=== PATIENT | male | born 1950 | race Caucasian/White ===

== ENCOUNTER 2018-03-17 07:26 | Inpatient (IN) | payer MEDICARE ==
[2018-03-17 08:18] LABS: #Eosinphils 0.1 thou/uL (0.0-0.7); #Lymphocytes 1.5 thou/uL (1.20-3.40); #Monocytes 0.4 thou/uL (0.11-0.59); #Neutrophils 2.3 thou/uL (1.40-6.50); %Basophils 0.6 % (0.0-1.0); %Lymphocytes 33.5 % (21.0-51.0); %Monocytes 10.2 % (0.0-10.0); %Neutrophils 53.7 % (42.0-75.0); Hemoglobin 15.5 g/dL (14.0-18.0); Mean Corpuscular HGB CONC 33.8 g/dL (32.0-36.0); Mean Corpuscular Hemoglobin 30.9 pg (27.0-31.0); Mean Corpuscular Volume 91.4 fL (78.0-98.0); Mean Platelet Volume 8.5 fL (7.4-10.4); Platelet Count 194 thou/uL (130-400); RBC Distribution Width 11.1 % (11.5-14.5); White Blood Cell (WBC) Count 4.3 thou/uL (4.8-10.8)
[2018-03-17] MEDS ORDERED: CEFAZOLIN/Water 2 GM/20 ML SYRINGE ONE (08:21)
[2018-03-17] MEDS ORDERED: Midazolam HCl 2 mg/2 ml Vial ONE (08:21)
[2018-03-17 08:32] LABS: Anion Gap 12 mmol/L (10-20); BUN (Urea Nitrogen) 18 mg/dL (8.4-25.7); Calc. Creatinine Clearance 96 mL/min (70-130); Calcium 9.7 mg/dL (7.8-10.44); Carbon Dioxide 26 mmol/L (23-31); Chloride 105 mmol/L (98-107); Estimated GFR-MDRD 70; Glucose 120 mg/dL (80-115); Potassium 4.1 mmol/L (3.5-5.1); Sodium 139 mmol/L (136-145)
[2018-03-17] MEDS ORDERED: Heparin 10,000 UNITS/1 ML VIAL 30,000 UNITS in Sodium Chloride 0.9% 1,000 ML IVPB SCH (08:45)
[2018-03-17] MEDS ORDERED: Albumin 5% 500 ML ONE (09:02)
[2018-03-17] MEDS ORDERED: Dexmedetomidine 200 MCG/2 ML VIAL ONE (09:11)
[2018-03-17] MEDS ORDERED: Fentanyl 100 MCG/2 ML VIAL ONE (09:11)
[2018-03-17] MEDS ORDERED: Vecuronium 10 MG VIAL ONE ×2 (09:11→09:53)
[2018-03-17] MEDS ORDERED: Midazolam HCl 5 mg/5 ml Vial ONE (09:11)
[2018-03-17] MEDS ORDERED: Papaverine 60 MG/2 ML VIAL ONE (09:51)
[2018-03-17] MEDS ORDERED: Protamine Sulfate 250 MG/25 ML VIAL ONE (09:51)
[2018-03-17] MEDS ORDERED: Potassium Chloride 60 MEQ/30 ML VIAL ONE (09:51)
[2018-03-17] MEDS ORDERED: Mannitol 12.5 GM/50 ML ONE (09:51)
[2018-03-17] MEDS ORDERED: Calcium Chloride 1 GM/10 ML Abboject SYRINGE ONE (09:51)
[2018-03-17] MEDS ORDERED: Magnesium 5 GM/10 ML VIAL ONE (09:51)
[2018-03-17] MEDS ORDERED: Nitroglycerin 50 MG/250 ML BOT ONE (09:51)
[2018-03-17] MEDS ORDERED: Sodium Bicarb 50 MEQ/50 ML Abboject 8.4% SYRINGE ONE (09:51)
[2018-03-17] MEDS ORDERED: Lidocaine 2% PF 100 mg/5 ml Syringe ONE (09:51)
[2018-03-17] MEDS ORDERED: Heparin 30,000 units/30 ml VIAL ONE (09:51)
[2018-03-17] MEDS ORDERED: Heparin 5,000 UNITS/ML VIAL ONE (09:51)
[2018-03-17] MEDS ORDERED: Thrombin 5000 UNITS/5 ML VIAL ONE (09:51)
[2018-03-17] MEDS ORDERED: Aminocaproic Acid 5 GM/20 ML VIAL ONE (09:51)
[2018-03-17] MEDS ORDERED: Ketorolac Tromethamine 30 MG/ML VIAL ONE (09:53)
[2018-03-17] MEDS ORDERED: Lidocaine 1% PF 5 ML VIAL ONE (09:53)
[2018-03-17] MEDS ORDERED: ePHEDrine/0.9% NaCl/PF SYRINGE 50 mg/10 ml ONE (09:53)
[2018-03-17] MEDS ORDERED: PHENYLEPHRINE-NS 100 MCG/ML 10 ML SYRINGE ONE (09:53)
[2018-03-17] MEDS ORDERED: Prevnar 13-Val Conj/PF 0.5 ML SYRINGE IM ONE (12:30)
[2018-03-17] MEDS ORDERED: Bisacodyl 5 MG TAB PO PRN (12:54)
[2018-03-17] MEDS ORDERED: Guaifenesin DM 100-10/5 ML UDCUP PO PRN (12:54)
[2018-03-17] MEDS ORDERED: Mag-Al 1200 mg/1200 mg/30 ML UDCUP PO PRN (12:54)
[2018-03-17] MEDS ORDERED: Ondansetron PF 4 MG/2 ML Vial IVP PRN (12:54)
[2018-03-17] MEDS ORDERED: Hetastarch 6% 500 ML 500 ML IVPB PRN (12:54)
[2018-03-17] MEDS ORDERED: Bisacodyl 10 MG SUPP PR PRN (12:54)
[2018-03-17] MEDS ORDERED: Post-Op Insulin Drip Protocol IVPB ONE (12:54)
[2018-03-17] MEDS ORDERED: hydrALAZINE 20 MG/ML VIAL SLOW IVP PRN (12:54)
[2018-03-17] MEDS ORDERED: HYDROcodone/Acetaminophen 5/325 mg Tablet PO PRN (12:54)
[2018-03-17] MEDS ORDERED: DOPamine 400 MG/D5W 250 ML 250 ML IVPB PRN (12:54)
[2018-03-17] MEDS ORDERED: Acetaminophen 325 MG TAB PO PRN (12:54)
[2018-03-17] MEDS ORDERED: Fentanyl 100 MCG/2 ML VIAL SLOW IVP PRN (12:54)
[2018-03-17] MEDS ORDERED: Potassium Chloride 20 MEQ/100 ML PREMIX BAG IVPB PRN (12:54)
[2018-03-17] MEDS ORDERED: Promethazine HCl 25 MG/ML VIAL IM PRN (12:54)
[2018-03-17] MEDS ORDERED: Nitroglycerin 50 MG/250 ML BOT 250 ML IVPB PRN (12:54)
[2018-03-17] MEDS ORDERED: Phenylephrine 10 MG/NS 250 ML 250 ML IVPB PRN (12:54)
[2018-03-17] MEDS ORDERED: Magnesium Sulfate 5 GM in Sodium Chloride 0.9% 1,000 ML IV SCH (13:00)
[2018-03-17] MEDS ORDERED: Dextrose 5% in Water 1,000 ML IV PRN (13:14)
[2018-03-17] MEDS ORDERED: Insulin Regular 300 UNITS/3 ML VIAL SC PRN (13:14)
[2018-03-17] MEDS ORDERED: Dextrose 50% Abboject 50 ML SYRINGE SLOW IVP PRN (13:14)
[2018-03-17 13:27] LABS: #Eosinphils 0.1 thou/uL (0.0-0.7); #Lymphocytes 1.1 thou/uL (1.20-3.40); #Monocytes 0.4 thou/uL (0.11-0.59); #Neutrophils 5.6 thou/uL (1.40-6.50); %Basophils 0.3 % (0.0-1.0); %Lymphocytes 14.9 % (21.0-51.0); %Monocytes 5.1 % (0.0-10.0); %Neutrophils 78.7 % (42.0-75.0); Hemoglobin 13.9 g/dL (14.0-18.0); Mean Corpuscular HGB CONC 33.7 g/dL (32.0-36.0); Mean Corpuscular Volume 91.9 fL (78.0-98.0); Mean Platelet Volume 8.5 fL (7.4-10.4); Platelet Count 138 thou/uL (130-400); Red Blood Cell (RBC) Count 4.48 mill/uL (4.70-6.10); White Blood Cell (WBC) Count 7.1 thou/uL (4.8-10.8)
--- NOTE | 2018-03-17 13:30 | OP ---
DATE OF PROCEDURE: 03/17/2018 PREOPERATIVE DIAGNOSES: Coronary artery disease, atrial fibrillation, paroxysmal. POSTOPERATIVE DIAGNOSES: Coronary artery disease, atrial fibrillation, paroxysmal. PROCEDURE: Coronary bypass graft x2, left internal mammary artery good quality to a 2-2.5 mm LAD, sa phenous vein good quality to a 1.5-2 mm OM1. Left atrial appendage ligation and epicardial maze proc edure. SURGEON: Serafin Reyez M.D. HOME STAGING SPECIALIST: Dr. Anthony Grubbs TRANSFUSION: None. PROCEDURE IN DETAIL: After adequate anesthesia had been obtained, Dr. Grubbs placed a right subclavia n triple lumen CVP. The patient was then prepped and draped and Dr. Grubbs harvested saphenous vein f rom the left thigh. Following this, I performed a median sternotomy. Left internal mammary artery w as harvested after dividing the sternum. Heparin was given. The mammary divided distally, passed po sterior to a bulky thymus gland. It was then treated with intraluminal papaverine with excellent haily w. Aorta and right atrium were cannulated and after cardiopulmonary bypass was begun vessels were in spected for grafting. The OM1 was intramyocardial; however, proximally it was easily visible. Follo wing aortic cross clamping and a liter of cold blood cardioplegia was given. Epicardial maze with th e Medtronic irrigative device was used to treat the right superior and inferior pulmonary veins separ ately on 2 occasions each and then combined left superior and inferior pulmonary vein x2. Base of th e appendage was then treated and oversewn with a double layer of 4-0 Prolene suture. Following compl etion of this, the two distal anastomoses were completed with a 7-0 Prolene suture. The cross-clamp removed, partial occluding clamp placed, and a single proximal anastomosis performed on the aortic ro ot marked with a ring. The patient was then weaned from cardiopulmonary bypass, cannulas removed, an d the aortic cannulation site secured with a 4-0 Prolene suture. Mediastinal and left pleural drains were placed and after obtaining good hemostasis, the sternum was reapproximated with #7 interrupted wire using vancomycin paste on the sternal edges, platelet rich blood, and platelet-poor plasma.
[2018-03-17 13:34] LABS: INR-International Normal Ratio 1.3; Prothrombin Time 16.4 SEC (12.0-14.7)
[2018-03-17] MEDS: Lactated Ringer's 1,000 ML IV SCH ×2 (13:47→22:39)
[2018-03-17 13:48] VITALS: BMI 38.2
[2018-03-17 13:58] LABS: Anion Gap 7 mmol/L (10-20); BUN (Urea Nitrogen) 15 mg/dL (8.4-25.7); Calc. Creatinine Clearance 121 mL/min (70-130); Calcium 8.1 mg/dL (7.8-10.44); Carbon Dioxide 24 mmol/L (23-31); Chloride 112 mmol/L (98-107); Estimated GFR-MDRD 90; Glucose 143 mg/dL (80-115); Potassium 4.3 mmol/L (3.5-5.1); Sodium 139 mmol/L (136-145)
--- NOTE | 2018-03-17 14:13 | RAD ---
CHEST 1 VIEW PORTABLE: Date: 03/17/18 HISTORY: 67-year-old male with history of postop open heart. No comparison studies are available. FINDINGS: There are findings of recent postop open heart surgery with midline sternotomy. Right subclavian cath eter. No pneumothorax or significant confluent pneumonia. There are some increased markings in the in frahilar regions, probably subsegmental atelectasis. IMPRESSION: Evidence for some infrahilar increased densities, evidence for some subsegmental atelectatic changes postoperative. No evidence for other acute process. Continue short-term follow-up. POS: [facility]
[2018-03-17] MEDS: Fentanyl 100 MCG/2 ML VIAL SLOW IVP PRN ×2 (14:43→16:20)
[2018-03-17] MEDS: CEFAZOLIN/Water 2 GM/20 ML SYRINGE SLOW IVP SCH ×2 (15:33→23:37)
[2018-03-17] MEDS: Ketorolac Tromethamine 30 MG/ML VIAL IVP SCH ×2 (17:32→23:37)
[2018-03-17 19:07] LABS: Hemoglobin 13.3 g/dL (14.0-18.0)
[2018-03-17 19:27] LABS: Potassium 4.1 mmol/L (3.5-5.1)
[2018-03-17] MEDS ORDERED: Famotidine/PF 20 mg/2ml Vial SLOW IVP SCH (21:00)
[2018-03-17] MEDS ORDERED: Atorvastatin Calcium 10 MG TAB PO SCH (21:00)
[2018-03-17] MEDS: HYDROcodone/Acetaminophen 5/325 mg Tablet PO PRN (21:08)
--- NOTE | 2018-03-17 21:41 | CON ---
DATE OF CONSULTATION: 03/17/2018 SERVICE: Pulmonary Medicine. REASON FOR CONSULTATION: ICU patient. HISTORY OF PRESENT ILLNESS: The patient is a pleasant 67-year-old white male with past medical history significant for hypertension, dyslipidemia and coronary artery disease. He also has paroxysmal atrial fibrillation. He presented to the hospital today for routine outpatient coronary artery bypass graft and Maze procedure. The operation was uncomplicated. He returned to the ICU already extubated. He denies any chest pain, shortness of breath, nausea, vomiting, fevers or chills at this time. He went into this procedure in his usual state of health. PAST MEDICAL HISTORY: 1. Coronary artery disease. 2. Atrial fibrillation, paroxysmal. 3. Dyslipidemia. 4. Hypertension. PAST SURGICAL HISTORY: 1. Coronary artery bypass graft x2 vessels with intraoperative ligation of left atrial appendage. 2. Cholecystectomy. 3. Cardiac catheterization. SOCIAL HISTORY: He has rare alcohol use. He is a lifelong nonsmoker and denies any illicit drugs. He has no exposure to chemicals, dust, asbestos or tuberculosis. FAMILY HISTORY: Noncontributory. ALLERGIES: No known drug allergies. MEDICATIONS: List of his inpatient medications were reviewed. No specific updates were made. REVIEW OF SYSTEMS: General, head, ears, eyes, nose, throat, cardiovascular, respiratory, GI, , musculoskeletal, neurologic and skin is negative except as mentioned in the HPI. PHYSICAL EXAMINATION: VITAL SIGNS: Afebrile, pulse 51, blood pressure 123/74, respirations 25, saturation 97% on 4 liters via simple facemask. HEENT: Normocephalic, atraumatic. Sclerae are white. Conjunctivae are pink. Oral mucosa is moist without lesions. LUNGS: Good air entry. Some rhonchi are present dependently. It clears with cough. Dependent crackles are minimal. No prolonged expiratory phase or wheezing appreciated. HEART: Normal rate and regular. ABDOMEN: Soft, nontender, nondistended. Bowel sounds are positive. MUSCULOSKELETAL: No cyanosis or clubbing. There is 1+ pitting in the bilateral lower extremities. NEUROLOGIC: Grossly nonfocal. LABORATORY DATA: WBC 7.1, hemoglobin 13.9, platelets 138,000. INR 1.3. Basic metabolic profile is essentially unremarkable. IMAGING: Chest x-ray demonstrates no fractures or dislocations. There is no acute cardiopulmonary abnormality identified. Interval placement of sternotomy wires are noted. There is a left-sided thoracostomy drain and mediastinal drain in good position. Low lung volumes are present. There is likely volume loss in the left. ASSESSMENT: 1. Acute hypoxic respiratory failure. 2. Coronary artery disease, status post coronary artery bypass graft x2 vessels , postop day 0. 3. Atrial fibrillation, paroxysmal, status post left atrial appendage ligation. PLAN: We will continue postop supportive care. Pulmonary Critical Care will continue to follow along while the patient remains in this location. We will focus on the mobilization efforts starting in the morning. 70 minutes have been devoted to this patient in various activities. I personally reviewed all imaging studies and laboratory data noted within this document. For fifty percent of this time, I was interacting with the patient at the bedside or coordinating care with the care team. For the remainder of the time I was immediately available to the patient in the hospital unit. [facility]
[2018-03-18 03:36] LABS: #Lymphocytes 0.9 thou/uL (1.20-3.40); #Monocytes 0.6 thou/uL (0.11-0.59); #Neutrophils 5.2 thou/uL (1.40-6.50); %Basophils 0.2 % (0.0-1.0); %Eosinophils 0.2 % (0.0-10.0); %Lymphocytes 12.7 % (21.0-51.0); Mean Corpuscular Hemoglobin 31.5 pg (27.0-31.0); Mean Corpuscular Volume 92.7 fL (78.0-98.0); Mean Platelet Volume 8.9 fL (7.4-10.4); Platelet Count 147 thou/uL (130-400); White Blood Cell (WBC) Count 6.7 thou/uL (4.8-10.8)
[2018-03-18 03:55] LABS: Anion Gap 9 mmol/L (10-20); BUN (Urea Nitrogen) 18 mg/dL (8.4-25.7); Calc. Creatinine Clearance 118 mL/min (70-130); Carbon Dioxide 23 mmol/L (23-31); Chloride 110 mmol/L (98-107); Estimated GFR-MDRD 88; Glucose 124 mg/dL (80-115); Potassium 4.1 mmol/L (3.5-5.1); Sodium 138 mmol/L (136-145)
[2018-03-18] MEDS: HYDROcodone/Acetaminophen 5/325 mg Tablet PO PRN ×4 (04:11→21:00)
[2018-03-18] MEDS: Ketorolac Tromethamine 30 MG/ML VIAL IVP SCH ×4 (05:06→23:51)
[2018-03-18] MEDS ORDERED: Milk Of Magnesia 30 ML UDCUP PO PRN (08:38)
[2018-03-18] MEDS ORDERED: Nitroglycerin 0.4 MG TAB (25 Tab Bottle) SL PRN (08:38)
[2018-03-18] MEDS ORDERED: Acetaminophen 325 MG TAB PO PRN (08:38)
[2018-03-18] MEDS ORDERED: Guaifenesin DM 100-10/5 ML UDCUP PO PRN (08:38)
[2018-03-18] MEDS ORDERED: Mineral Oil ENEMA PR PRN (08:38)
[2018-03-18] MEDS ORDERED: Bisacodyl 10 MG SUPP PR PRN (08:38)
[2018-03-18] MEDS ORDERED: Fentanyl 100 MCG/2 ML VIAL SLOW IVP PRN (08:38)
[2018-03-18] MEDS ORDERED: Ondansetron PF 4 MG/2 ML Vial IVP PRN (08:38)
[2018-03-18] MEDS ORDERED: Mag-Al 1200 mg/1200 mg/30 ML UDCUP PO PRN (08:38)
[2018-03-18] MEDS ORDERED: Bisacodyl 5 MG TAB PO PRN (08:38)
--- NOTE | 2018-03-18 08:43 | RAD ---
PORTABLE AP CHEST XRAY: DATE: 03/18/2018. HISTORY: Post open heart surgery. COMPARISON: 03/17/2018. FINDINGS: Right subclavian central venous catheter is noted in place with the tip in stable position. Left-mark ed thoracostomy tube and mediastinal drains are stable in position. Cardiac silhouette is magnified by projection and stable in size. There is bibasilar atelectasis. Pulmonary vasculature is within n ormal limits. There is accentuation of the bronchovascular markings due to a shallow depth of inspir ation. The chest is overall stable from the prior study. IMPRESSION: Overall stable chest given differences in depth of inspiration. Lines and tubes are unchanged in pos ition. POS: [facility]
[2018-03-18] MEDS: Sodium Chloride 0.9% 10 ML ONE ×2 (08:48→23:53)
[2018-03-18] MEDS ORDERED: Aspirin 325 MG TAB PO SCH (09:00)
[2018-03-18] MEDS: Polyethylene Glycol 3350 17 GM Packet PO SCH ×2 (09:03→14:34)
[2018-03-18] MEDS: Aspirin 325 mg Enteric Coated Tablet PO SCH (09:09)
[2018-03-18] MEDS: Famotidine 20 MG TAB PO SCH ×2 (09:09→21:01)
[2018-03-18] MEDS ORDERED: CEFAZOLIN/Water 2 GM/20 ML SYRINGE SLOW IVP SCH (15:00)
--- NOTE | 2018-03-18 15:04 | PRG ---
DATE OF SERVICE: 03/18/2018 SERVICE: Pulmonary Medicine. INTERVAL HISTORY: The patient is doing outstanding from a respiratory standpoint. He denies any cur rent chest pain, fevers, or chills. Outside of when he coughs, he takes a deep breath. He is breath ing comfortably. There has been no interval change to his condition otherwise, he feels like he is m oving in the right direction. Chest tubes remain in place. He is yet to get up and walk around much . That being said, he has been out of bed and feels good. OBJECTIVE: VITAL SIGNS: Afebrile, pulse 64, blood pressure 122/68, respirations 17, saturation 93% on 2 liters nasal cannula. GENERAL: The patient is awake, alert, no apparent distress. LUNGS: Decent air entry. Dependent crackles are mild. No prolonged expiratory phase or wheezing ap preciated. HEART: Normal rate, regular. ABDOMEN: Soft, nontender, nondistended. Bowel sounds are positive. MUSCULOSKELETAL: No cyanosis or clubbing. There is trace 1+ pitting in the bilateral lower extremit ies. NEUROLOGIC: Grossly nonfocal. LABORATORY DATA: WBC 6.7, hemoglobin 12.0, platelets 147,000. Chloride 110. Basic metabolic profil e is otherwise unremarkable. IMAGING: Chest x-ray today demonstrates stable chest. Lines and tubes are otherwise in similar posi tion. There is no significant pulmonary vascular congestion identified on this radiograph. ASSESSMENT: 1. Acute hypoxic respiratory failure, improving. 2. Coronary artery disease, status post coronary bypass graft x2 vessels, postop day #1. 3. Atrial fibrillation, paroxysmal, status post left atrial appendage ligation. DISCUSSION AND PLAN: At this point, the patient is doing fantastic in the postoperative period. He has no further requirements for inpatient Pulmonary or Critical Care opinion. As such, I will sign o ff. Please call with additional questions or concerns moving forward.
[2018-03-18] MEDS: CEFAZOLIN/Water 2 GM/20 ML SYRINGE SLOW IVP SCH (15:10)
[2018-03-18] MEDS ORDERED: Sodium Chloride 0.9% 10 ML ONE (18:21)
[2018-03-18] MEDS: Atorvastatin Calcium 20 MG TAB PO SCH (21:01)
[2018-03-19] MEDS: Ketorolac Tromethamine 30 MG/ML VIAL IVP SCH ×3 (05:39→18:04)
[2018-03-19] MEDS: Sodium Chloride 0.9% 10 ML ONE (05:51)
[2018-03-19] MEDS: Aspirin 325 mg Enteric Coated Tablet PO SCH (07:42)
[2018-03-19] MEDS: Potassium Chloride 10 MEQ TAB PO SCH (07:42)
[2018-03-19] MEDS: HYDROcodone/Acetaminophen 5/325 mg Tablet PO PRN ×3 (07:43→22:02)
[2018-03-19] MEDS: Famotidine 20 MG TAB PO SCH ×2 (07:43→22:01)
--- NOTE | 2018-03-19 08:35 | EKG ---
Test Reason : S/P CABG Blood Pressure : / mmHG Vent. Rate : 050 BPM Atrial Rate : 050 BPM P-R Int : 174 ms QRS Dur : 104 ms QT Int : 478 ms P-R-T Axes : 049 018 028 degrees QTc Int : 435 ms Sinus bradycardia with Premature supraventricular complexes with aberrancy vs premature ventricular c ontraction. Otherwise normal ECG No previous ECGs available Confirmed by LEANA CLIFFORD ([id number]) on 03/19/2018 8:34:36 AM Referred By: FABIAN Confirmed By:LEANA CLIFFORD
[2018-03-19] MEDS ORDERED: Furosemide 40 MG TAB PO SCH (09:00)
[2018-03-19] MEDS ORDERED: Amiodarone HCl 150 MG in Dextrose 5% in Water 100 ML IVPB SCH (11:15)
[2018-03-19] MEDS ORDERED: Amiodarone In Dextrose 200 ML IVPB SCH (11:15)
[2018-03-19] MEDS ORDERED: Sodium Chloride 0.9% 10 ML ONE ×2 (12:32→18:02)
[2018-03-19] MEDS: Polyethylene Glycol 3350 17 GM Packet PO SCH (12:48)
[2018-03-19 12:55] LABS: ALT (SGPT) 27 U/L (8-55); AST (SGOT) 36 U/L (5-34); Albumin 3.7 g/dL (3.4-4.8); Alkaline Phosphatase 64 U/L (40-150); Bilirubin, Direct 0.4 mg/dL (0.1-0.3); Bilirubin, Total 0.9 mg/dL (0.2-1.2); Magnesium 2.5 mg/dL (1.6-2.6); Protein, Total 6.3 g/dL (5.8-8.1)
[2018-03-19] MEDS: Amiodarone HCl 450 MG, Admixture Fee 1 EACH in Dextrose 5% in Water 250 ML IVPB SCH ×2 (13:10→22:24)
[2018-03-19] MEDS: Atorvastatin Calcium 20 MG TAB PO SCH (22:01)
[2018-03-20] MEDS: Ketorolac Tromethamine 30 MG/ML VIAL IVP SCH ×4 (00:35→18:25)
[2018-03-20 05:21] LABS: #Eosinphils 0.1 thou/uL (0.0-0.7); #Lymphocytes 1.2 thou/uL (1.20-3.40); #Monocytes 0.7 thou/uL (0.11-0.59); #Neutrophils 4.6 thou/uL (1.40-6.50); %Basophils 0.3 % (0.0-1.0); %Eosinophils 1.6 % (0.0-10.0); %Lymphocytes 18.4 % (21.0-51.0); %Neutrophils 69.6 % (42.0-75.0); Hemoglobin 13.3 g/dL (14.0-18.0); Mean Corpuscular Hemoglobin 31.3 pg (27.0-31.0); Mean Corpuscular Volume 92.1 fL (78.0-98.0); Mean Platelet Volume 9.2 fL (7.4-10.4); Platelet Count 140 thou/uL (130-400); RBC Distribution Width 10.9 % (11.5-14.5); Red Blood Cell (RBC) Count 4.23 mill/uL (4.70-6.10); White Blood Cell (WBC) Count 6.7 thou/uL (4.8-10.8)
[2018-03-20 05:34] LABS: Anion Gap 9 mmol/L (10-20); BUN (Urea Nitrogen) 14 mg/dL (8.4-25.7); Calc. Creatinine Clearance 122 mL/min (70-130); Calcium 8.7 mg/dL (7.8-10.44); Carbon Dioxide 25 mmol/L (23-31); Chloride 100 mmol/L (98-107); Estimated GFR-MDRD 88; Glucose 129 mg/dL (80-115); Potassium 3.8 mmol/L (3.5-5.1); Sodium 130 mmol/L (136-145)
[2018-03-20] MEDS: Famotidine 20 MG TAB PO SCH ×2 (09:16→21:12)
[2018-03-20] MEDS: Furosemide 40 MG TAB PO SCH ×2 (09:16→14:15)
[2018-03-20] MEDS: Amiodarone 200 MG TAB PO SCH ×2 (09:16→21:12)
[2018-03-20] MEDS: Aspirin 81 mg Enteric Coated Tablet PO SCH (09:17)
[2018-03-20] MEDS: Potassium Chloride 10 MEQ TAB PO SCH (09:17)
[2018-03-20] MEDS: Polyethylene Glycol 3350 17 GM Packet PO SCH (09:18)
[2018-03-20] MEDS: Enoxaparin Sodium 100 MG/ML SYRINGE SC SCH ×2 (09:18→21:13)
--- NOTE | 2018-03-20 10:54 | RAD ---
CHEST 1 VIEW: HISTORY: Status post open heart surgery. COMPARISON: 03/18/2018. FINDINGS: Redemonstration of mediastinal drainage catheter, a left-sided chest tube, and a right-sided central venous catheter. Lung volume continues to be diminished. Bibasilar pleural and parenchymal changes are noted. No pneumothorax. Stable cardiac silhouette. IMPRESSION: Findings compatible with recent open heart surgery. POS: [facility]
[2018-03-20] MEDS: HYDROcodone/Acetaminophen 5/325 mg Tablet PO PRN ×2 (16:07→21:20)
[2018-03-20] MEDS: Atorvastatin Calcium 20 MG TAB PO SCH (21:11)
[2018-03-21 05:43] LABS: Hemoglobin 11.6 g/dL (14.0-18.0); Platelet Count 152 thou/uL (130-400)
[2018-03-21] MEDS: Potassium Chloride 10 MEQ TAB PO SCH (09:19)
[2018-03-21] MEDS: Amiodarone 200 MG TAB PO SCH (09:19)
[2018-03-21] MEDS: Aspirin 81 mg Enteric Coated Tablet PO SCH (09:20)
[2018-03-21] MEDS: Furosemide 40 MG TAB PO SCH ×2 (09:20→14:33)
[2018-03-21] MEDS: Famotidine 20 MG TAB PO SCH ×2 (09:20→20:24)
[2018-03-21] MEDS: HYDROcodone/Acetaminophen 5/325 mg Tablet PO PRN (09:21)
[2018-03-21] MEDS: Polyethylene Glycol 3350 17 GM Packet PO SCH ×2 (09:22→12:24)
--- NOTE | 2018-03-21 10:19 | PRG ---
DATE OF SERVICE: 03/21/2018 Mr. Garza is feeling well today, no chest pain or no shortness of breath. As noted in the chart he has developed atrial flutter with a relatively controlled ventricular response. The initial rhythm strips were on 03/17/2018 which showed sinus bradycardia. PHYSICAL EXAMINATION: LUNGS: His lungs are clear. CARDIAC: Irregular, no murmur, rub or gallop. ABDOMEN: Soft, nontender. EXTREMITIES: No edema. ASSESSMENT: Previously with paroxysmal atrial fibrillation, now atrial flutter some of this could be left-sided s/p CABG PLAN: 1. Change to Toprol-XL 50 mg a day. 2. Stop amiodarone. 3. Probably go home tomorrow. 4. Could consider atrial fibrillation and flutter ablation at a later time. We will resume anticoagulation when feasible. I would like to bring him back at a later time for transesophageal echo to make sure the appendage is completely closed. 5. Ultimately consideration for ablation of both the fibrillation and flutter as an outpatient will be given. HARMONY
[2018-03-21] MEDS: Atorvastatin Calcium 20 MG TAB PO SCH (20:24)
[2018-03-22] MEDS: HYDROcodone/Acetaminophen 5/325 mg Tablet PO PRN ×2 (05:11→10:59)
[2018-03-22 07:41] VITALS: BP 146/76; TEMP 97.9
[2018-03-22] MEDS: Aspirin 81 mg Enteric Coated Tablet PO SCH (08:11)
[2018-03-22] MEDS: Potassium Chloride 10 MEQ TAB PO SCH (08:11)
[2018-03-22] MEDS: Famotidine 20 MG TAB PO SCH (08:11)
[2018-03-22] MEDS: Polyethylene Glycol 3350 17 GM Packet PO SCH (08:12)
--- NOTE | 2018-03-22 10:07 | PRG ---
DATE OF SERVICE: 03/22/2018 SUBJECTIVE: Mr. Garza is doing well. No complaints. He is back in sinus rhythm. OBJECTIVE: VITAL SIGNS: Blood pressure 146/76, pulse 63 and regular. LUNGS: Clear. CARDIAC: Normal S1, normal S2. ABDOMEN: Soft, nontender. EXTREMITIES: No edema. ASSESSMENT: 1. Status post bypass surgery. 2. Paroxysmal atrial fibrillation. 3. Postoperative atrial flutter, currently has resolved. 4. Hypertension. PLAN: 1. He is to go back on the apixaban 5 mg twice a day. 2. Aspirin 81 mg a day. 3. Toprol-XL 50 mg a day. 4. He is off Benicar today. 5. Go ahead resume Benicar 40 mg tomorrow. 6. Currently off amlodipine.
--- NOTE | 2018-03-22 12:14 | DIS ---
This is a 67-year-old gentleman who underwent coronary bypass grafting to the LAD and OM with left at rial appendage ligation, confirmed with intraoperative CYNTHIA as well as a pulmonary vein isolation with the ImpactRxtronic wet device. Postoperative course was relatively unremarkable. He did have a short ep isode of atrial fibrillation and then a longer episode of atrial flutter with a controlled rate. He will be discharged home on metoprolol XL 50 a day, Lipitor 20 a day, Eliquis 5 b.i.d., aspirin 81 a d ay and Bonsall for pain. Incisions are healing nicely at the time of discharge. Plan is to reevaluate him in the future for consideration of atrial fibrillation/flutter ablation if it recurs. Discharge and follow up instructions have been given.
--- NOTE | 2018-03-24 09:37 | PQF ---
CARMEN JON JAMES M MD [id number] CLINICAL DOCUMENTATION CLARIFICATION FORM: POST DISCHARGE DATE: 03/24/2018 ATTN: DR. PERALTA Please exercise your independent, professional judgment in responding to the clarification form. Clinical indicators are provided on the bottom of this form for your review Please check appropriate box(s): [ ] Acute respiratory failure following a procedure [ ] Acute on chronic respiratory failure following a procedure [ ] Respiratory failure not related to surgical procedure [ ] Acute [ ] Chronic [ ] Acute on chronic [ ] Acute respiratory insufficiency due to a procedure [ ] Acute respiratory insufficiency NOT due to a procedure - please specify cause: [ ] Length of Ventilator management as a part of normal recovery, usual and customary for procedure [ ] Other diagnosis [ ] Unable to determine In addition, please specify: Present on Admission (POA): [ ] Yes [ ] No [ ] Unable to determine For continuity of documentation, please document condition throughout progress notes and discharge summary. Thank You. CLINICAL INDICATORS - SIGNS / SYMPTOMS / LABS "Acute hypoxic respiratory failure, improving" - PN 03/18/2018 decent air entry, dependent crackles are mild - PN 03/18/2018 atrial fibrillation, atrial flutter - s/p CABG and atrial appendage ligation - PN 03/18/2018 03/18/18 - 92%, 94%, 93% O2 sats 03/19/2018 - 94%, 93% O2sats - Respiratory clinical panel RISKS FACTORS CABG, atrial appendage ligation, epicardial maze procedure - OP 03/17/2018 TREATMENT: Oxygen - nasal cannula - Respiratory Clinical panel (This form is maintained as a part of the permanent medical record) 2014 [employer]. All Rights Reserved Anushka Chavarria, CCS, FAST FOOD DELIVERY DRIVER, CASC [email or web address]
== END 2018-03-22 11:32 | disposition home or self-care (01) | DRG 235 ==
LOC: SURG A 07:26 → CCU 12:56 → 2NO 03-18 08:24
PROVIDERS: ADMIT Thoracic Surgery (Cardiothoracic Vascular Surgery); ATTEND Thoracic Surgery (Cardiothoracic Vascular Surgery)
PROC: 02100Z9 Bypass Coronary Artery, One Artery from Left Internal Mammary, Open Approach (ICD-10-PCS; principal; 2018-03-17)
PROC: 0210093 Bypass Coronary Artery, One Artery from Coronary Artery with Autologous Venous Tissue, Open Approach (ICD-10-PCS; 2018-03-17)
PROC: 06BQ4ZZ Excision of Left Saphenous Vein, Percutaneous Endoscopic Approach (ICD-10-PCS; 2018-03-17)
PROC: 02L70ZK Occlusion of Left Atrial Appendage, Open Approach (ICD-10-PCS; 2018-03-17)
DX: I25.10 Atherosclerotic heart disease of native coronary artery without angina pectoris (principal); J96.01 Acute respiratory failure with hypoxia; I97.190 Other postprocedural cardiac functional disturbances following cardiac surgery; I48.92 Unspecified atrial flutter; I48.0 Paroxysmal atrial fibrillation; Y83.2 Surgical operation with anastomosis, bypass or graft as the cause of abnormal reaction of the patient, or of later complication, without mention of misadventure at the time of the procedure; I10 Essential (primary) hypertension; E78.5 Hyperlipidemia, unspecified; Z90.49 Acquired absence of other specified parts of digestive tract; E78.2 Mixed hyperlipidemia; Z79.899 Other long term (current) drug therapy
CPT/HCPCS: 36415; 36416; 36430; 71045; 80048; 80076; 82565; 83735; 84443; 85014; 85018; 85025; 85049; 85610; 85730; 86850; 86900; 86901; 90471; 90670; 93005; 93010; 93798; G0009; J0282; J1642; J1644; J1650; J1815; J1885; J2001; J2150; J2250; J2440; J2720; J3010; J3370; J3475; J3480; J7050; J7070; P9045; S0017; S0028

== ENCOUNTER 2018-06-20 06:26 | Outpatient (CLI) | payer MEDICARE ==
[2018-06-20 09:42] LABS: Hemoglobin 14.2 g/dL (14.0-18.0); Mean Corpuscular HGB CONC 33.8 g/dL (32.0-36.0); Mean Corpuscular Hemoglobin 28.2 pg (27.0-31.0); Mean Corpuscular Volume 83.4 fL (78.0-98.0); Mean Platelet Volume 9.1 fL (7.4-10.4); Platelet Count 189 thou/uL (130-400); RBC Distribution Width 12.5 % (11.5-14.5); Red Blood Cell (RBC) Count 5.02 mill/uL (4.70-6.10); White Blood Cell (WBC) Count 5.4 thou/uL (4.8-10.8)
[2018-06-20 09:46] LABS: INR-International Normal Ratio 1.2; PTT 31.8 SEC (22.9-36.1)
[2018-06-20 10:04] LABS: Anion Gap 13 mmol/L (10-20); BUN (Urea Nitrogen) 15 mg/dL (8.4-25.7); Calc. Creatinine Clearance 0 mL/min (70-130); Calcium 9.7 mg/dL (7.8-10.44); Carbon Dioxide 25 mmol/L (23-31); Chloride 106 mmol/L (98-107); Estimated GFR-MDRD 88; Glucose 113 mg/dL (80-115); Potassium 4.5 mmol/L (3.5-5.1); Sodium 139 mmol/L (136-145)
== END 2018-06-20 06:27 | disposition home or self-care (01) ==
LOC: LABBT 06:26
PROVIDERS: ATTEND Internal Medicine Cardiovascular Disease
DX: Z01.818 Encounter for other preprocedural examination (principal); I48.91 Unspecified atrial fibrillation
CPT/HCPCS: 80048; 85027; 85610; 85730; 93005; 93010

== ENCOUNTER 2018-06-23 05:42 | Observation (INO) | payer MEDICARE ==
[2018-06-23] MEDS ORDERED: Propofol 1,000 MG/100 ML VIAL IV ONE (06:31)
[2018-06-23] MEDS ORDERED: Fentanyl 100 MCG/2 ML VIAL ONE ×5 (06:31→13:51)
[2018-06-23] MEDS ORDERED: Heparin 10,000 UNITS/1 ML VIAL ONE ×2 (06:48→09:15)
[2018-06-23] MEDS ORDERED: Midazolam HCl 2 mg/2 ml Vial ONE (07:05)
[2018-06-23] MEDS ORDERED: Propofol 500 MG/50 ML VIAL ONE (07:05)
[2018-06-23] MEDS ORDERED: KETAMINE 100 MG/ML (5ML VIAL) ONE (07:05)
[2018-06-23] MEDS ORDERED: PROPOFOL 20 ML ONE (07:51)
--- NOTE | 2018-06-23 09:31 | ECHO ---
TRANSESOPHAGEAL ECHOCARDIOGRAM: Date: 06/13/18 REASON FOR PROCEDURE: Mr. Garza is a 67-year-old male with bypass surgery last year. He had a Maze procedure and left appendage closure. Since then, he has been in atrial flutter. He is here for a CYNTHIA to evaluate his left appendage closure and patency. PROCEDURE: Patient received Propofol by anesthesia specialist. After adequate level of sedation was achieved, the standard transesophageal echocardiogram probe was passed into the esophagus without difficulty. The patient tolerated the procedure well. No complications were noted. RESULTS: Left atrium is mildly enlarged, about 4.4 cm in horizontal diameter. Left appendage is visualized. There is a small residual pouch seen, about 1.0 cm in diameter, at the site of the appendage. Behind that, a surgical closure septum is visualized. No flow on Doppler is visualized through the septum. Behind the wall, there is a space which is echo-free with fluid, likely represents some residual portion of the left atrial appendage, but cannot rule out pericardial sinus. Either way, there is no flow going through this area. Small clotted material is demonstrated in the distal portion of this. Mitral valve has mild regurgitation only. Four of four pulmonary veins were visualized. --------- septum is free of defect. Left ventricular systolic function is preserved. Chamber sizes are normal otherwise. Left ventricular wall thickness is normal. Right-sided chamber is nondilated. Tricuspid valve without significant regurgitation. Aortic valve is sclerotic, but opens well, three leaflets demonstrated, and no significant regurgitation is seen. Pulmonic valve is borderline visualized, but appears to be with mild regurgitation. Pericardial space is with mild effusion only. The visualized portions of the ascending and descending aorta with adherent atheroma, but adherent atheroma is seen. Intraventricular septum is free of defect. CONCLUSIONS: 1. The closure of the left atrial appendage is demonstrated with minor residual pouch. 2. Mild left atrial enlargement. 3. Mild mitral regurgitation. 4. Preserved left ventricular systolic function. 5. Trivial pericardial effusion. 6. Sclerotic but not stenotic aortic valve. PLAN: Proceed with the ablation procedure. HARMONY
[2018-06-23] MEDS ORDERED: Isoproterenol 0.2 MG/1 ML AMP ONE (10:16)
[2018-06-23] MEDS ORDERED: DOPamine 400 MG/D5W 250 ML 0 ML ONE (10:16)
[2018-06-23] MEDS ORDERED: Heparin 25,000 units/D5W 500 ML ONE (10:16)
[2018-06-23] MEDS ORDERED: Iopamidol 370 76% 50 ML VIAL FS ONE (10:17)
[2018-06-23] MEDS ORDERED: Protamine Sulfate 50 MG/5 ML VIAL ONE (11:32)
--- NOTE | 2018-06-23 14:26 | OP ---
DATE OF PROCEDURE: 06/23/2018 ELECTROPHYSIOLOGY STUDY AND RADIOFREQUENCY FREQUENCY ABLATION REPORT REFERRING PHYSICIAN: Dr. Vini Lazo. REASON FOR PROCEDURE: Mr. Garza is a 67-year-old man with prior history of coronary artery disease post bypass surgery, who had persistent atrial flutter post bypass surgery and atrial fibrillation prior to the bypass. He underwent left atrial maze procedure during the bypass surgery as well as left atrial appendage ligation. CYNTHIA performed prior to this ablation demonstrated occlusion of the left atrial appendage with minimal residual stump. He is here for atrial flutter ablation as well as re-isolation of left pulmonary vein. DESCRIPTION OF PROCEDURE: The patient received propofol by Anesthesia specialist. After adequate level of sedation achieved, the left and right femoral veins were prepped, draped, and anesthetized using subcutaneous lidocaine. With help of ultrasound, both femoral veins were cannulated x2 each site. On the left side, an 11-Wolof sheath was used to advance an intracardiac ICE catheter, which was used to monitor hemodynamics transseptal procedure as well as any effusion throughout the case. At the end of case, no significant pericardial effusion was seen unchanged from before. Also from the left side, a Preface sheath was introduced through which a DuoDeca catheter was advanced to the CS in right atrial position. Due to instability, this later was changed to a simple Decapolar catheter. On the right side, two 8-Wolof short sheaths were introduced through which a ThermoCool SFST catheter was advanced to the right atrium. Right atrial 3D map was obtained. The overdrive pacing at the cavotricuspid isthmus demonstrated post pacing interval matching the atrial flutter cycle length at baseline is about 240 milliseconds. Following that, cavotricuspid isthmus ablation was performed, which terminated the atrial flutter. Proximal CS pacing was performed, and the transisthmus block was demonstrated by longest transisthmus time by adjacent to the ablation line. Following that, transseptal procedure was performed x2 with ultrasound guidance. Heparin was administered to keep ACTs over 360, which were monitored. Throughout the procedure, the esophageal probe was used to monitor the posterior wall had esophageal temperatures. Through the SL1 sheath, a 20-pole Lasso catheter was introduced to the left atrium and a 3D map of the left atrium was also obtained. The right-sided pulmonary veins were found to be isolated. Posterior wall was remained intact without significant scarring. The left-sided veins were not isolated. Pulmonary venous isolation of left pulmonary veins was performed successfully isolating the both veins. Following that, Isuprel was administered. Any reconnections were re-ablated. All 4 pulmonary veins were silent at the end of the procedure. Following that, the catheter was withdrawn from the right atrium, but also through the sheath, a left atrial venogram was performed, but no evidence of reconnection of the left atrial appendage was seen. Following that, the heparin was stopped and on the right side, the cavotricuspid isthmus line was rechecked and re-ablated for any reconnection. After this, again the cardiac silhouette did not significantly change and no significant pericardial effusion was noted at the end of the case. The sheaths were pulled in the laborer powerhouse. No complications. NUMERICAL FINDINGS: Baseline cycle length was 1020. MA 178, QRS 84, QT 340, AH 140, HV 45 milliseconds after termination of the baseline atrial flutter. Baseline atrial flutter episode typical isthmus dependent flutter with atrial cycle length of 240 milliseconds. After termination of flutter, AV Wenckebach cycle length was 360 milliseconds. AV lev ERP was 600/300 milliseconds. No dual AV lev physiology was present. Burst atrial pacing did not reinduce the atrial tachyarrhythmia. CONCLUSION: 1. Successful cavotricuspid isthmus ablation eliminating baseline atrial flutter. 2. Re-isolation of the left superior and inferior pulmonary veins was necessary. The right-sided veins were found to be isolated from a prior surgical maze procedure. 3. No evidence of IV dye progressing into the left atrial appendage apart from a small stump proximally. 4. Normal sinus and AV lev function. No evidence of additional atrial arrhythmias inducible. PLAN: Restart short-term anticoagulation for about 3 months. If no recurrent atrial arrhythmia seen, change oral anticoagulation to aspirin and Plavix. Job ID: [id number] [facility]
[2018-06-23] MEDS ORDERED: Ondansetron PF 4 MG/2 ML Vial ONE (15:28)
[2018-06-23] MEDS ORDERED: Glycopyrrolate 0.2 MG/ML 5 ML SYRINGE ONE (15:28)
[2018-06-23] MEDS ORDERED: Esmolol 100 MG/10 ML VIAL ONE (15:28)
[2018-06-23] MEDS ORDERED: PROPOFOL 200 MG/20 ML VIAL ONE (15:28)
[2018-06-23] MEDS ORDERED: PHENYLEPHRINE-NS 100 MCG/ML 10 ML SYRINGE ONE (15:28)
[2018-06-23] MEDS ORDERED: Rocuronium Bromide 10 MG/ML (10ML VIAL) ONE (15:28)
[2018-06-23] MEDS ORDERED: ePHEDrine/0.9% NaCl/PF SYRINGE 50 mg/10 ml ONE (15:28)
[2018-06-23 15:49] VITALS: BMI 31.8
--- NOTE | 2018-06-23 16:48 | RAD ---
CHEST 1 VIEW: Date: 06/23/18 HISTORY: Post cardiac device placement. FINDINGS: Heart size appears enlarged with postop sternotomy changes. Lungs are clear of any infiltrates. I do not appreciate any signs of pneumothorax. Overlying external leads are seen. I do not see any type of pacing device. IMPRESSION: Cardiomegaly with postop sternotomy change. POS: [facility]
[2018-06-23] MEDS ORDERED: HYDROcodone/Acetaminophen 5/325 mg Tablet PO PRN ×2 (17:35)
[2018-06-23] MEDS ORDERED: Acetaminophen/Codeine 30-300mg Tablet PO PRN ×2 (17:35)
[2018-06-23] MEDS: Apixaban 5 MG TAB PO SCH (20:21)
[2018-06-24] MEDS ORDERED: Aspirin 81 mg Enteric Coated Tablet PO SCH (09:00)
[2018-06-24] MEDS ORDERED: Atorvastatin Calcium 20 MG TAB PO SCH (09:00)
[2018-06-24] MEDS: Apixaban 5 MG TAB PO SCH (09:08)
[2018-06-24 12:10] VITALS: BP 107/62; TEMP 98.6
--- NOTE | 2018-06-25 04:34 | DIS ---
DATE OF ADMISSION: 06/23/2018 DATE OF DISCHARGE: 06/24/2018 ADMITTING PHYSICIAN: Dr. Chance Pollard. SURGEON: Dr. Chance Pollard. DISCHARGING PHYSICIAN: Dr. Chance Pollard. DIAGNOSIS: Atrial fibrillation and atrial flutter. PROCEDURES PERFORMED: Include 3D mapping electrophysiology study and left atrial ablation for atrial fibrillation, atrial flutter and CYNTHIA. HISTORY OF PRESENT ILLNESS: Mr. Garza is a pleasant 67-year-old gentleman with a prior history of coronary artery bypass surgery that was performed in February of 2018. He had persistent atrial flutter post bypass surgery and a history of atrial fibrillation prior to bypass. He underwent left atrial Maze procedure during the bypass surgery as well as left atrial appendage ligation. He was admitted for an elective atrial fibrillation ablation, but underwent CYNTHIA prior to ablation to evaluate the left atrial appendage, which demonstrated complete occlusion with a minimal residual stump. He underwent CTI as well as left atrial ablation on 06/23 with reisolation of left superior and inferior pulmonary veins, right-sided veins remained isolated from the prior surgical Maze. He had normal sinus and AV lev function with no evidence of atrial arrhythmias inducible post ablation and had successful CTI ablation limiting his baseline flutter. The recommendations post ablation include resuming short-term anticoagulation for about 3 months post ablation and if no recurrence is seen to transition to a dual antiplatelet therapy with aspirin and Plavix. Mr. Garza has done well since his ablation. He has been ambulating throughout the garcia without difficulty, tolerating p.o. intake without nausea, vomiting, or diarrhea and is voiding normally. His vital signs have been stable. He is not having shortness of breath or chest pain and he feels ready for discharge home. SUBJECTIVE: Denies heart racing, palpitations, chest pain, pressure, syncope, near syncope, stroke, stroke-like symptoms, bleeding or pain at the groin sites, orthopnea, or shortness of breath. Otherwise, an 8-point review of systems was conducted, is unremarkable. OBJECTIVE: VITAL SIGNS: 98.6, pulse 73, blood pressure 112/56, respirations 16, oxygen is 95% on room air. GENERAL: The patient is oriented. Speech is clear. Affect is appropriate. NECK: Supple without jugular venous distention. LUNGS: Clear to auscultation bilaterally. CV: Heart rate is regularly regular with occasional ventricular ectopy seen on telemetry, otherwise maintaining a sinus rhythm by telemetry. PMI is nondisplaced. There is no murmur, rub, or gallop. ABDOMEN: Soft and nontender. Hepatojugular reflux is negative. NEUROLOGIC: Grossly intact and nonfocal. Gait is stable without assistive device. IMAGING: Telemetry and EKG were all personally reviewed. The patient is maintaining sinus rhythm overnight with occasional ventricular ectopy with heart rates in the 60-70 beats per minute range. DISCHARGE MEDICATIONS: Include: 1. Eliquis 5 mg p.o. b.i.d. x3 months. 2. Toprol-XL 50 mg p.o. daily. 3. Lipitor 20 mg p.o. q.a.m. 4. Benicar 40 mg p.o. daily. 5. Aspirin 81 mg daily. DISCONTINUED MEDICATIONS: Include Digoxin. NEW PRESCRIPTIONS: 1. Sucralfate 1 g p.o. q.i.d. x2 weeks. 2. Protonix 40 mg p.o. daily x30 days. DISCHARGE INSTRUCTIONS: Detailed discharge instruction pamphlet was provided to the patient and gone over bedside. All questions were answered. He will not lift over 5-10 pounds for the next week or have soaking baths for the next 1 week. He has a followup appointment scheduled with [facility] in the [facility] in 6 weeks time. He will also receive an event monitor in the mail for use over the next 3-6 months post ablation for monitoring for recurrent arrhythmias for any arrhythmias concerns you may have during his recovery. I have instructed him no interruption in his blood thinning medication electively for the next 3 months and contact [facility] before ever stopping this medication. The patient is stable for discharge. Job ID: [id number]
== END 2018-06-24 13:49 | disposition home or self-care (01) ==
LOC: CCL 05:42 → 2SW 15:39
PROVIDERS: ADMIT Internal Medicine Cardiovascular Disease; ATTEND Internal Medicine Cardiovascular Disease
PROC: 02583ZZ Destruction of Conduction Mechanism, Percutaneous Approach (ICD-10-PCS; principal; 2018-06-23)
PROC: 02K83ZZ Map Conduction Mechanism, Percutaneous Approach (ICD-10-PCS; 2018-06-23)
PROC: 4A023FZ Measurement of Cardiac Rhythm, Percutaneous Approach (ICD-10-PCS; 2018-06-23)
PROC: 4A0234Z Measurement of Cardiac Electrical Activity, Percutaneous Approach (ICD-10-PCS; 2018-06-23)
PROC: B24BZZ4 Ultrasonography of Heart with Aorta, Transesophageal (ICD-10-PCS; 2018-06-23)
DX: I48.92 Unspecified atrial flutter (principal); I48.0 Paroxysmal atrial fibrillation; I25.10 Atherosclerotic heart disease of native coronary artery without angina pectoris; I34.0 Nonrheumatic mitral (valve) insufficiency; I35.8 Other nonrheumatic aortic valve disorders; I10 Essential (primary) hypertension; E78.00 Pure hypercholesterolemia, unspecified; H93.239 Hyperacusis, unspecified ear; Z79.01 Long term (current) use of anticoagulants; Z79.82 Long term (current) use of aspirin; Z79.899 Other long term (current) drug therapy; Z95.1 Presence of aortocoronary bypass graft; Z97.4 Presence of external hearing-aid
CPT/HCPCS: 36005; 71045; 75820; 76942; 85347 ×2; 93005 ×2; 93312; 93613; 93623; 93655; 93656; 93662; C1730 ×2; C1731; C1732 ×2; C1759; C1769; G0378; 93010; J1265; J1644; J2250; J2405; J2704; J2720; J3010; Q9967

== ENCOUNTER 2025-01-13 00:19 | Emergency (ER) | payer MEDICARE ==
[2025-01-13 01:06] LABS: #Basophils 0.04 10x3/uL (0.0-0.2); #Eosinophils 0.07 10x3/uL (0.0-0.7); #Monocytes 0.59 10x3/uL (0.11-0.59); #Neutrophils 4.17 10x3/uL (1.40-6.50); %Basophils 0.6 % (0.0-1.0); %Eosinophils 1.1 % (0.0-10.0); %Lymphocytes 24.3 % (21.0-51.0); %Monocytes 9.1 % (0.0-10.0); %Neutrophils 64.6 % (42.0-75.0); Hematocrit 39.7 % (42.0-52.0); Hemoglobin 13.5 g/dL (14.0-18.0); Mean Corpuscular Hemoglobin 29.7 pg (27.0-31.0); Mean Corpuscular Volume 87.3 fL (78.0-98.0); Platelet Count 180 10x3/uL (130-400); Red Blood Cell (RBC) Count 4.55 mill/uL (4.70-6.10); White Blood Cell (WBC) Count 6.46 10x3/uL (4.8-10.8)
[2025-01-13 01:21] LABS: INR-International Normal Ratio 1.0; Prothrombin Time 13.6 sec (12.0-14.7)
[2025-01-13 01:34] LABS: Anion Gap 15 mmol/L (10-20); Chloride 97 mmol/L (98-107); Potassium 3.4 mmol/L (3.5-5.1); Sodium 129 mmol/L (136-145)
[2025-01-13 01:53] LABS: ALT (SGPT) 32 U/L (Less than 45); AST (SGOT) 26 U/L (11-34); Albumin 3.9 g/dL (3.1-4.5); Alkaline Phosphatase 72 U/L (40-110); BUN (Urea Nitrogen) 10 mg/dL (8.4-25.7); Bilirubin, Total 0.6 mg/dL (0.3-1.2); Calc. Creatinine Clearance 0 mL/min (70-130); Calcium 8.5 mg/dL (7.8-10.44); Carbon Dioxide 20 mmol/L (23-31); Globulin 3.0 g/dL (2.4-3.5); Glucose 119 mg/dL (83-110)
[2025-01-13] MEDS ORDERED: Lidocaine 1% (PF) 30 ML VIAL ONE (03:27)
[2025-01-13] MEDS ORDERED: CEFAZOLIN 2 GM VIAL ONE (04:51)
== END 2025-01-13 06:07 | disposition home or self-care (01) ==
LOC: ERS 00:19
DX: S92.421B Displaced fracture of distal phalanx of right great toe, initial encounter for open fracture (principal); I10 Essential (primary) hypertension; W18.40XA Slipping, tripping and stumbling without falling, unspecified, initial encounter
CPT/HCPCS: 12002; 36415; 80053; 80307; 85025; 85610; 96365